=== PATIENT | male | born 1955 | race Caucasian/White ===

== ENCOUNTER 2022-12-03 19:10 | Emergency (ER) | payer MEDICARE, BC, SELFPAY ==
--- NOTE | ~2022-12-03 | CT_ITS ---
EXAMINATION: CT cervical spine wo con DATE: 12/03/2022 20:52 INDICATION: Fall TECHNIQUE: Computed tomography (CT) of the cervical spine was performed without intravenous contrast. Automated exposure control and iterative reconstruction technique were employed. The dose-length pro duct was 574.28 mGy-cm. COMPARISON: None. FINDINGS: Vertebral Body Alignment: Intact. Craniocervical and atlantoaxial alignment: Mild degenerative change. Alignment intact. Osseous structures/fracture: No evidence of a lytic or blastic process in the visualized spine. No e vidence of acute fracture. Cervical soft tissues: The paraspinal soft tissues planes are maintained. Degenerative changes: Multilevel severe degenerative disc disease. Multilevel severe bilateral neural foraminal narrowing. Multilevel mild facet arthropathy. No severe central canal narrowing. IMPRESSION: No acute fracture or traumatic malalignment in the cervical spine. Reviewed, dictated and finalized at location K.
--- NOTE | ~2022-12-03 | CT_ITS ---
EXAMINATION: CT brain wo con DATE: 12/03/2022 20:51 INDICATION: head injury . TECHNIQUE: Computed tomography (CT) of the head was performed without intravenous contrast. The mA wa s adjusted according to patient size. Iterative reconstruction technique was employed. The dose-lengt h product was 605.33 mGy-cm. COMPARISON: None. FINDINGS: No acute intracranial hemorrhage or extra-axial fluid collection. No hydrocephalus, mass, or herniation. No acute ischemic infarct. Unremarkable dural venous sinus attenuation. No acute osseous abnormality. The aerated spaces are clear. Minimal atherosclerotic intracranial calcification. IMPRESSION: No acute intracranial process. Reviewed, dictated and finalized at location K.
[2022-12-03 19:17] VITALS: BP 133/86; PULSE 93; RESP 20; TEMP 36.6; O2SAT 95
--- NOTE | 2022-12-03 21:43 | ED.HEATRA ---
HPI - Head Injury General Chief complaint: Head Injury Stated complaint: fall, head injury Time Seen by Provider: 12/03/22 21:34 History of Present Illness HPI Narrative: This is a 67-year-old male, who denies past medical history, presenting to the emergency department after a fall at home. The patient states he was pulling a smoker, when the handle snapped, causing him to fall backwards and strike his head on the ground. He did not lose consciousness and was able to immediately stand. He complains of 4/10 dull scalp pain. He denies preceding chest pain, shortness of breath, palpitations or any similar symptoms thereafter. He denies injury elsewhere and has no other complaints today. He Review of Systems Review of Systems: CONSTITUTIONAL: Denies fever, chills, or sweats. CARDIOVASCULAR: Denies chest pain, palpitations, or edema. RESPIRATORY: Denies cough or dyspnea. GASTROINTESTINAL: Denies abdominal pain, nausea, vomiting, or diarrhea. GENITOURINARY: Denies dysuria or hematuria. SKIN: Laceration of scalp denies rash or itching. MUSCULOSKELETAL: Denies back pain, joint pain, or myalgia. NEUROLOGIC: Denies headache, numbness, dizziness, or weakness. PSYCHIATRIC: Denies anxiety or depression. [facility] Past Medical History Medical History (Updated 12/03/22 @ 21:56 by Octavio Siddiqi MD) No significant past medical history Surgical History Surgical History (Updated 12/03/22 @ 21:56 by Octavio Siddiqi MD) No significant past surgical history Social History Social History (Updated 12/03/22 @ 21:56 by Octavio Siddiqi MD) Smoking status: Never smoker Alcohol intake: never Substance use: never Exam Narrative: GENERAL: Well-developed, well-nourished, and in no acute distress. HEAD: Normocephalic, a 3 cm laceration is noted to the left parietal occipital scalp. There is no involvement of galea. There is no noted retained foreign object. EYES: PERRLA and EOMI. ENT: Nares clear, no rhinorrhea or epistaxis. Mucous membranes moist. Oropharynx without tonsillar hypertrophy exudate or other lesions. NECK: Supple. No midline spine tenderness to palpation. No step-off or crepitus CHEST: Clear to auscultation. No respiratory distress. No wheezes rales or rhonchi HEART: Regular rate and rhythm. No murmur heard. Normal peripheral pulses. ABDOMEN: Soft, nontender, nondistended, normal active bowel sounds. EXTREMITIES: Normal range of motion. No edema. BACK: No midline spine tenderness to palpation. No step-off or crepitus SKIN: Warm, dry, no rash. NEURO: Alert and oriented x3. Strength 5/5 in all extremities, sensation intact bilaterally, cranial nerves II through XII intact patient ambulates without difficulty PSYCH: Normal mood and affect. Course Course Emergency Course: 21:55 - CT head negative for fracture or intracranial hemorrhage. CT cervical spine negative for fracture or dislocation. The patient's laceration was closed with les. Please see procedure note. Will discharge with recommendation for primary care follow-up in 2 weeks for staple removal. Discussed return and emergency precautions including signs/symptoms of intracranial hemorrhage and wound infection. The patient voiced understanding and is comfortable with plan. All questions answered to his satisfaction. Vital Signs Vital signs: Vital Signs Temperature 97.9 F 12/03/22 19:17 Pulse Rate 93 12/03/22 19:17 Respiratory Rate 20 12/03/22 19:17 Blood Pressure 133/86 12/03/22 19:17 Pulse Oximetry 95 12/03/22 19:17 Oxygen Delivery Room Air 12/03/22 19:17 Temperature 97.9 F 12/03/22 19:17 Pulse Rate 93 12/03/22 19:17 Respiratory Rate 20 12/03/22 19:17 Blood Pressure 133/86 12/03/22 19:17 Pulse Oximetry 95 12/03/22 19:17 Oxygen Delivery Room Air 12/03/22 19:17 Procedures Laceration Laceration 1: Date: 12/03/22 Time: 21:50 Site: scalp Side (If applic
[2022-12-03] MEDS: TETANUS,DIPHTHERIA,AC PERTUSSIS ADULT (0.5 ML) BOOSTRIX IM (21:50)
== END 2022-12-03 22:16 | disposition home or self-care (01) ==
PROVIDERS: Emergency Provider Preventive Medicine Aerospace Medicine
DX: S01.01XA Laceration without foreign body of scalp, initial encounter (principal); Z23 Encounter for immunization; W18.39XA Other fall on same level, initial encounter
CPT/HCPCS: 12002; 70450; 72125; 90471; 90715; 99284

== ENCOUNTER 2023-12-07 09:39 | Outpatient (CLI) | payer MEDICARE, BC, SELFPAY ==
--- NOTE | ~2023-12-07 | US_ITS ---
EXAMINATION: US aorta [facility] DATE: 12/07/2023 10:08 INDICATION: Abdominal aortic aneurysm screening TECHNIQUE: Grayscale, color Doppler, and pulsed Doppler images of the aorta and common iliac arteries were obtained. COMPARISON: None. FINDINGS: The abdominal aorta and inferior vena cava were unable to be visualized from anteriorly. Portions of the aorta were able to be suboptimally visualized in the coronal plane. The mid portion of the abdomi nal aorta measures up to maximal of 2.3 cm. The proximal and distal abdominal aorta were unable to be visualized. IMPRESSION: 1. Very limited study with only a portion of the mid aorta able to be visualized in the coronal plane where it measured 2.3 cm in diameter which is normal. Could consider further evaluation with CT as c linically indicated. Reviewed, dictated and finalized at location A. IMPRESSION: 1. Very limited study with only a portion of the mid aorta able to be visualize d in the coronal plane where it measured 2.3 cm in diameter which is normal. Co uld consider further evaluation with CT as clinically indicated.
== END 2023-12-07 09:40 | disposition home or self-care (01) ==
LOC: GOSHIMG 09:41
PROVIDERS: PCP Family Medicine; Visit Provider Family Medicine
DX: Z13.6 Encounter for screening for cardiovascular disorders (principal)
CPT/HCPCS: 76706